=== PATIENT | female | born 1955 | race Caucasian/White ===

== ENCOUNTER → 2016-11-19 | Outpatient (CLI) | payer BC | LOC: FIMAGING 10:03 | PROVIDERS: ATTEND Family Medicine | DX: M51.36 Other intervertebral disc degeneration, lumbar region (principal); M51.37 Other intervertebral disc degeneration, lumbosacral region; M41.85 Other forms of scoliosis, thoracolumbar region ==

== ENCOUNTER → 2016-11-23 | Outpatient (CLI) | payer BC | LOC: FIMAGING 14:54 | PROVIDERS: ATTEND Physician Assistant | DX: M51.26 Other intervertebral disc displacement, lumbar region (principal); M48.06 Spinal stenosis, lumbar region; D25.9 Leiomyoma of uterus, unspecified ==

== ENCOUNTER → 2017-01-18 | Outpatient (CLI) | payer BC | LOC: FIMAGING 11:02 | PROVIDERS: ATTEND Family Medicine | DX: Z12.31 Encounter for screening mammogram for malignant neoplasm of breast (principal) | CPT/HCPCS: G0202 ==

== ENCOUNTER 2017-02-13 01:25 | Emergency (ER) | payer BC ==
[2017-02-13 01:29] VITALS: BP 148/82; PULSE 62; RESP 16; TEMP 98.1; O2SAT 98
--- NOTE | 2017-02-13 01:38 | EDPHY ---
H & P Stated Complaint: ?UTI HPI/ROS: HPI CHIEF COMPLAINT: I think I have a urinary tract infection HISTORY OF PRESENT ILLNESS: This patient is a 61-year-old female, otherwise healthy, presents emergency room with dysuria and urinary urgency. This started tonight. Denies any back pain that is new. Denies fever. Denies vomiting chest pain or shortness of breath. No significant abdominal pain. Decided come the emergency room as she has been having ongoing urgency and frequency. Past Medical History: Denies any significant medical history Past Surgical History: Lumbar laminectomy, hip surgery Social History: Denies daily use drugs alcohol tobacco products. Family History: Noncontributory ROS REVIEW OF SYSTEMS: A comprehensive 10 point review of systems is otherwise negative aside from elements mentioned in the history of present illness. Exam Constitutional appears well nontoxic, triage nursing summary reviewed, vital signs reviewed, awake/alert. Eyes normal conjunctivae and sclera, EOMI, PERRLA. HENT normal inspection, atraumatic, moist mucus membranes, no epistaxis, neck supple/ no meningismus, no raccoon eyes. Respiratory clear to auscultation bilaterally, normal breath sounds, no respiratory distress, no wheezing. Cardiovascular rate normal, regular rhythm, no murmur, no edema, distal pulses normal. Gastrointestinal soft, non-tender, no rebound, no guarding, normal bowel sounds, no distension, no pulsatile mass. Genitourinary no CVA tenderness. Musculoskeletal no midline vertebral tenderness, full range of motion, no calf swelling, no tenderness of extremities, no meningismus, good pulses, neurovascularly intact. Skin pink, warm, & dry, no rash, skin atraumatic. Neurologic awake, alert and oriented x 3, AAOx3, moves all 4 extremities equally, motor intact, sensory intact, CN II-XII intact, normal cerebellar, normal vision, normal speech. Psychiatric normal mood/affect. Heme/Lymph/Immune no lymphadenopathy. Differential Diagnosis: Includes but is not limited to in a particular order, UTI, cystitis, pyelonephritis Medical Decision Making: Plan for this patient check UA. She denies any significant abdominal pain. Not vomiting. No fever. Vital signs stable. Re-evaluation: Source: Patient - Personal History Current Tetanus/Diphtheria Vaccine: Yes Current Tetanus Diphtheria and Acellular Pertussis (TDAP): Yes Tetanus Vaccine Date: less than 10 years - Medical/Surgical History Hx Asthma: No Hx Chronic Respiratory Disease: No Hx Diabetes: No Hx Cardiac Disease: No Hx Renal Disease: No Hx Cirrhosis: No Hx Alcoholism: No Hx HIV/AIDS: No Hx Splenectomy or Spleen Trauma: No Other PMH: Htn, Hyperlipidemia, infectious colitis. Rotator cuff, cholecystectomy, HEMOCHROMATOSIS, SCIATICA - Social History Smoking Status: Never smoked Constitutional: Initial Vital Signs Temperature (C) 36.7 C 02/13/17 01:28 Heart Rate 62 02/13/17 01:28 Respiratory Rate 16 02/13/17 01:28 Blood Pressure 148/82 H 02/13/17 01:28 O2 Sat (%) 98 02/13/17 01:28 O2 Delivery Mode Room Air Allergies/Adverse Reactions: No Known Allergies Allergy (Verified 02/24/16 15:37) Home Medications: Medication Instructions Recorded Triamterene/Hydrochlorothiazid 1 each PO DAILY 04/12/15 [Triamterene-Hctz 37.5-25 mg Cp] Gabapentin [Neurontin 300 MG (*)] 300 mg PO TID 02/16/16 Cyanocobalamin [Vitamin B12 1,000 mcg SC Q30D 02/20/16 1000MCG/ML (*)] HYDROmorphone HCL [Dilaudid 2 mg 2 mg PO Q4 PRN 02/20/16 (*)] Nebivolol HCl [Bystolic] 10 mg PO DAILY 02/20/16 Rosuvastatin Calcium [Crestor] 10 mg PO DAILY 02/20/16 Zolpidem Tartrate [Ambien 5MG (*)] 5 mg PO HS 02/20/16 traMADol [Ultram 50 mg (*)] 50 mg PO Q6 PRN 02/20/16 Methocarbamol [Robaxin 750 mg (*)] 750 mg PO QID PRN #50 tab 02/26/16 Sennosides/Docusate Sodium 1 - 2 tab PO BID #30 tab 02/26/16 [Senokot-S] HYDROcodone/APAP 10 [[place] 1 tab PO Q6 PRN #0 tab 02/28/16 10 (*)] oxyCODONE IR [Oxycodone Ir (*)] 5 mg PO Q3HRS PRN #60 tab 02/28/16 Cephalexin [Keflex] 500 mg PO Q6H #28 cap 02/13/17 Phenazopyridine HCl [Pyridium] 200 mg PO TID #15 tab 02/13/17 Medical Decision Making - Data Points Laboratory Results: 02/13/17 01:30 Urine Color Pending Urine Appearance Pending Urine pH Pending Ur Specific [place] Pending Urine Protein Pending Urine Ketones Pending Urine Blood Pending Urine Nitrate Pending Urine Bilirubin Pending Urine Urobilinogen Pending Ur Leukocyte Esterase Pending Urine Glucose Pending Departure - Departure Disposition: Home, Routine, Self-Care Clinical Impression: Urinary tract infection Qualifiers: Urinary tract infection type: acute cystitis Hematuria presence: with hematuria Qualified Code(s): N30.01 - Acute cystitis with hematuria Condition: Good Instructions: Urinary Tract Infection in Women (ED) Additional Instructions: 1. Make sure to drink lots of water. Stay well-hydrated. 2. Return emergency room if you have worsening symptoms questions or concerns this includes vomiting, back pain, fever. 3. Antibiotics as prescribed. Referrals: Ronnell Giordano DO [Primary Care Provider] - As per Instructions Prescriptions: Cephalexin [Keflex] 500 mg PO Q6H #28 cap Phenazopyridine HCl [Pyridium] 200 mg PO TID #15 tab
[2017-02-13 01:50] LABS: COLOR RED; LEUKOCYTE ESTERASE,URINE 3+ (NEGATIVE); NITRITE,URINE NEGATIVE (NEGATIVE)
[2017-02-13 01:52] LABS: BACTERIA 1+ /hpf (NONE SEEN); RBC,URINE 25-50 /hpf (0-3); WBC,URINE 50-182 /hpf (0-3)
[2017-02-13] MEDS: CEPHALEXIN 500MG PREPACK#4 BTL TAKEHOME ONE (02:04)
[2017-02-13] MEDS: PHENAZOPYRIDINE HCL 200 MG TAB PO ONE (02:05)
[2017-02-13] MEDS: CEPHALEXIN 500 MG CAP PO ONE (02:06)
== END 2017-02-13 02:22 | disposition home or self-care (01) ==
DX: N30.01 Acute cystitis with hematuria (principal); B96.89 Other specified bacterial agents as the cause of diseases classified elsewhere; I10 Essential (primary) hypertension

== ENCOUNTER → 2017-03-29 | Outpatient (CLI) | payer BC | LOC: FIMAGING 10:50 | PROVIDERS: ATTEND Physician Assistant Medical | DX: Z13.820 Encounter for screening for osteoporosis (principal) ==

== ENCOUNTER → 2017-06-14 | Outpatient (CLI) | payer BC | LOC: FIMAGING 08:58 | PROVIDERS: ATTEND Podiatrist Foot & Ankle Surgery | DX: M76.811 Anterior tibial syndrome, right leg (principal); M19.072 Primary osteoarthritis, left ankle and foot; S93.142A Subluxation of metatarsophalangeal joint of left great toe, initial encounter ==

== ENCOUNTER → 2017-09-16 | Outpatient (CLI) | payer BC | LOC: FIMAGING 14:02 | PROVIDERS: ATTEND Internal Medicine Pulmonary Disease | DX: Z09 Encounter for follow-up examination after completed treatment for conditions other than malignant neoplasm (principal); R91.8 Other nonspecific abnormal finding of lung field; E04.1 Nontoxic single thyroid nodule ==

== ENCOUNTER → 2018-01-07 | Outpatient (CLI) | payer BC | LOC: FIMAGING 10:16 | PROVIDERS: ATTEND Physician Assistant | DX: M23.204 Derangement of unspecified medial meniscus due to old tear or injury, left knee (principal); M24.10 Other articular cartilage disorders, unspecified site; M76.52 Patellar tendinitis, left knee; M76.32 Iliotibial band syndrome, left leg; M67.462 Ganglion, left knee; M23.42 Loose body in knee, left knee ==

== ENCOUNTER 2018-02-17 09:33 | Emergency (ER) | payer BC ==
--- NOTE | 2018-02-17 09:46 | EDPHY ---
H & P Smoking Status: Never smoked Time Seen by Provider: 02/17/18 09:42 HPI/ROS: CHIEF COMPLAINT: Shortness of breath the last 2 days HISTORY OF PRESENT ILLNESS: 62-year-old female with a history of hypertension here with complaints of shortness of breath but no chest pain the last 2 days which has been on and off. She states that 4 days ago she had her left knee scoped by Orthopedics. There were no complications. Intermittently since then she has had some mild shortness of breath. She admits that prior to having surgery she has also had a slightly productive cough and sore throat. She has not had a fever. She denies any hemoptysis. Is no history of COPD, smoking, heart failure, PE, DVT. REVIEW OF SYSTEMS: Constitutional: No fever, no chills. Eyes: No discharge. ENT: No sore throat. Cardiovascular: No chest pain, no palpitations. Respiratory: + cough, + shortness of breath. Gastrointestinal: No abdominal pain, no vomiting. Genitourinary: No hematuria. Musculoskeletal: No back pain. Skin: No rashes. Neurological: No headache. (Pa Urias) Physical Exam: General Appearance: Alert and no distress. Eyes: Pupils equal and round no injection. Respiratory: Chest is nontender, lungs are clear to auscultation. Cardiac: regular rate and rhythm. Gastrointestinal: Abdomen is soft and nontender, no masses, bowel sounds normal. Musculoskeletal: Neck is supple and nontender. Extremities have full range of motion and are nontender. No calf swelling or edema Skin: No rashes or lesions. (Pa Urias) Constitutional: Initial Vital Signs Temperature (C) 36.3 C 02/17/18 09:34 Heart Rate 62 02/17/18 09:34 Respiratory Rate 16 02/17/18 09:34 Blood Pressure 185/89 H 02/17/18 09:34 O2 Sat (%) 96 02/17/18 09:34 O2 Delivery Mode Room Air Allergies/Adverse Reactions: No Known Allergies Allergy (Verified 02/24/16 15:37) Home Medications: Medication Instructions Recorded Triamterene/Hydrochlorothiazid 1 each PO DAILY 04/12/15 [Triamterene-Hctz 37.5-25 mg Cp] Gabapentin [Neurontin 300 MG (*)] 300 mg PO TID 02/16/16 Cyanocobalamin [Vitamin B12 1,000 mcg SC Q30D 02/20/16 1000MCG/ML (*)] HYDROmorphone HCL [Dilaudid 2 mg 2 mg PO Q4 PRN 02/20/16 (*)] Nebivolol HCl [Bystolic] 10 mg PO DAILY 02/20/16 Rosuvastatin Calcium [Crestor] 10 mg PO DAILY 02/20/16 Zolpidem Tartrate [Ambien 5MG (*)] 5 mg PO HS 02/20/16 traMADol [Ultram 50 mg (*)] 50 mg PO Q6 PRN 02/20/16 Methocarbamol [Robaxin 750 mg (*)] 750 mg PO QID PRN #50 tab 02/26/16 Sennosides/Docusate Sodium 1 - 2 tab PO BID #30 tab 02/26/16 [Senokot-S] HYDROcodone/APAP 10325 [[place] 1 tab PO Q6 PRN #0 tab 02/28/16 10325 (*)] oxyCODONE IR [Oxycodone Ir (*)] 5 mg PO Q3HRS PRN #60 tab 02/28/16 Cephalexin [Keflex] 500 mg PO Q6H #28 cap 02/13/17 Phenazopyridine HCl [Pyridium] 200 mg PO TID #15 tab 02/13/17 Albuterol Hfa Anes Only [Proair 2 puffs IH QID #1 mdi 02/17/18 Hfa Icu (*)] Medical Decision Making - Diagnostics EKG Interpretation: EKG: Complete interpretation has been separately recorded in the [facility] archive. Summary impression: Sinus rhythm, rate 56 (Jamshid Hdez) Imaging Results: Imaging Impressions Chest X-Ray 02/17/18 09:43 Impression: Minimal peribronchial thickening, which can be seen with bronchitis/ airways disease. Chest/Thorax CTA 02/17/18 10:29 Impression: 1. No visible pulmonary embolus. 2. Mild airways disease/bronchitis with scattered atelectasis. 3. Coronary artery atherosclerosis. 4. Grossly stable thyroid nodules, suboptimally assessed by CT. If these have not been assessed on outside ultrasound, recommend thyroid ultrasound. 5. Additional findings as above. Findings discussed with Pa Urias PA-C on February 17, 2018 at 1147 hours. ED Course/Re-evaluation: 62-year-old female here with intermittent shortness of breath since surgery 4 days ago but have elevated D-dimer so CTA was ordered. CT shows atelectasis but no focal infiltrate or signs of pneumonia, CHF, pulmonary embolism. She is not hypoxic and in no respiratory distress lung sounds are clear. She was given albuterol inhaler for possible bronchitis. Indications for ER return were discussed. (Pa Urias) Differential Diagnosis: CHF, DVT, PE, pneumonia, arrhythmia, ACS (Pa Urias) - Data Points Laboratory Results: Laboratory Results 02/17/18 09:49 02/17/18 09:49 02/17/18 02/17/18 02/17/18 09:52 09:49 09:49 WBC RBC Hgb Hct MCV MCH MCHC RDW Plt Count MPV Neut % (Auto) Lymph % (Auto) [place] % (Auto) Eos % (Auto) Baso % (Auto) Nucleat RBC Rel Count Absolute Neuts (auto) Absolute Lymphs (auto) Absolute Monos (auto) Absolute Eos (auto) Absolute Basos (auto) Absolute Nucleated RBC Immature Gran % Immature Gran # D-Dimer 0.55 ug/mLFEU H ug/mLFEU (0.00-0.50) Sodium 140 mEq/L mEq/L (135-145) Potassium 4.1 mEq/L mEq/L (3.3-5.0) Chloride 107 mEq/L mEq/L (97-110) Carbon Dioxide 24 mEq/l mEq/l (22-31) Anion Gap 9 mEq/L mEq/L (6-14) BUN 26 mg/dL H mg/dL (7-23) Creatinine 0.9 mg/dL mg/dL (0.6-1.0) Estimated GFR > 60 Glucose 122 mg/dL H mg/dL (70-100) Calcium 9.1 mg/dL mg/dL (8.5-10.4) POC Troponin I 0.01 ng/mL ng/mL (0.00-0.08) 02/17/18 09:49 WBC 6.07 10^3/uL 10^3/uL (3.80-9.50) RBC 3.81 10^6/uL L 10^6/uL (4.18-5.33) Hgb 12.5 g/dL L g/dL (12.6-16.3) Hct 36.7 % L % (38.0-47.0) MCV 96.3 fL fL (81.5-99.8) MCH 32.8 pg pg (27.9-34.1) MCHC 34.1 g/dL g/dL (32.4-36.7) RDW 12.9 % % (11.5-15.2) Plt Count 206 10^3/uL 10^3/uL (150-400) MPV 9.2 fL fL (8.7-11.7) Neut % (Auto) 53.2 % % (39.3-74.2) Lymph % (Auto) 31.1 % % (15.0-45.0) [place] % (Auto) 9.6 % % (4.5-13.0) Eos % (Auto) 4.8 % % (0.6-7.6) Baso % (Auto) 0.8 % % (0.3-1.7) Nucleat RBC Rel Count 0.0 % % (0.0-0.2) Absolute Neuts (auto) 3.23 10^3/uL 10^3/uL (1.70-6.50) Absolute Lymphs (auto) 1.89 10^3/uL 10^3/uL (1.00-3.00) Absolute Monos (auto) 0.58 10^3/uL 10^3/uL (0.30-0.80) Absolute Eos (auto) 0.29 10^3/uL 10^3/uL (0.03-0.40) Absolute Basos (auto) 0.05 10^3/uL 10^3/uL (0.02-0.10) Absolute Nucleated RBC 0.00 10^3/uL 10^3/uL (0-0.01) Immature Gran % 0.5 % % (0.0-1.1) Immature Gran # 0.03 10^3/uL 10^3/uL (0.00-0.10) D-Dimer Sodium Potassium Chloride Carbon Dioxide Anion Gap BUN Creatinine Estimated GFR Glucose Calcium POC Troponin I Point of Care Test Results: Chemistry 02/17/18 09:52 POC Troponin I 0.01 ng/mL ng/mL (0.00-0.08) Departure - Departure Disposition: Home, Routine, Self-Care Clinical Impression: Shortness of breath, Atelectasis of both lungs, Thyroid nodule, Elevated blood pressure reading Condition: Good Instructions: Thyroid Nodules (ED), Atelectasis (ED) Referrals: Ronnell Giordano, [Primary Care Provider] - As per Instructions Prescriptions: Albuterol Hfa Anes Only [Proair Hfa Icu (*)] 2 puffs IH QID #1 mdi
--- NOTE | 2018-02-17 10:07 | CPEKG ---
Test Reason : OPEN Blood Pressure : / mmHG Vent. Rate : 056 BPM Atrial Rate : 056 BPM P-R Int : 143 ms QRS Dur : 083 ms QT Int : 412 ms P-R-T Axes : 048 -05 016 degrees QTc Int : 398 ms Sinus rhythm Confirmed by Jamshid Hdez ([id number]) on 02/17/2018 10:07:32 AM Referred By: Confirmed By:Jamshid Hdez
[2018-02-17 10:11] LABS: PLATELET COUNT 206 10^3/uL (150-400)
[2018-02-17] MEDS ORDERED: IOPAMIDOL (ISOVUE 370) 100 ML BTL IV ONE (10:39)
[2018-02-17 12:13] VITALS: BP 166/86
== END 2018-02-17 12:12 | disposition home or self-care (01) ==
DX: J98.11 Atelectasis (principal); I10 Essential (primary) hypertension; E04.1 Nontoxic single thyroid nodule
CPT/HCPCS: 84484-PO; Q9967

== ENCOUNTER → 2018-02-17 | Outpatient (CLI) | payer BC | LOC: FIMAGING 14:31 | PROVIDERS: ATTEND Family Medicine | DX: Z12.31 Encounter for screening mammogram for malignant neoplasm of breast (principal); Z80.3 Family history of malignant neoplasm of breast ==

== ENCOUNTER → 2018-03-20 | Outpatient (CLI) | payer BC | LOC: FIMAGING 16:04 | PROVIDERS: ATTEND Orthopaedic Surgery Sports Medicine | DX: M79.662 Pain in left lower leg (principal) ==

== ENCOUNTER → 2018-09-20 | Outpatient (CLI) | payer BC | LOC: BMCIMAGING 10:53 | PROVIDERS: ATTEND Podiatrist Foot & Ankle Surgery | DX: M84.375A Stress fracture, left foot, initial encounter for fracture (principal) ==